=== PATIENT | male | born 1985 | race Two or more races ===

== ENCOUNTER 2021-06-19 01:53 | Emergency (ER) | payer MEDICAID, OTHER ==
[~2021-06-19] VITALS: Ht 170.2 cm; Wt 113.4 kg
[2021-06-19] MEDS ORDERED: LIDOCAINE 2%HCL (LOCAL ANESTH.) INJ 10ml MDV IJ ONE ×2 (05:15)
[2021-06-19] MEDS ORDERED: ONDANSETRON ODT 4 MG TAB PO ONE (05:45)
[2021-06-19] MEDS ORDERED: HYDROcodone-ACET 10/325MG TAB PO ONE (05:45)
[2021-06-19 06:42] VITALS: BP 149/95
== END 2021-06-19 06:35 | disposition home or self-care (01) ==
LOC: ER 01:53
DX: L05.01 Pilonidal cyst with abscess (principal); R94.31 Abnormal electrocardiogram [ECG] [EKG]
CPT/HCPCS: 10080; 93005; 99284; J2001; Q0162

== ENCOUNTER 2021-06-21 12:13 | Emergency (ER) | payer MEDICAID ==
[~2021-06-21] VITALS: Ht 170.2 cm; Wt 113.4 kg
[2021-06-21 16:20] VITALS: BP 145/92
[2021-06-21] MEDS ORDERED: ACETAMINOPHEN/CODEINE#3 (300/30mg) TAB PO ONE (18:00)
[2021-06-21] MEDS ORDERED: ONDANSETRON ODT 4 MG TAB PO ONE (18:00)
== END 2021-06-21 18:13 | disposition home or self-care (01) ==
LOC: ER 12:13
DX: L05.01 Pilonidal cyst with abscess (principal); I48.91 Unspecified atrial fibrillation
CPT/HCPCS: 99283; Q0162